=== PATIENT | male | born 1935 | race Native Hawaiian/Other Pacific Islander ===

== ENCOUNTER 2021-03-04 16:54 | Emergency (ER) | payer OTHER ==
[~2021-03-04] VITALS: Ht 182.9 cm; Wt 90.7 kg
[2021-03-04 18:52] VITALS: BP 128/67; TEMP 98
== END 2021-03-04 18:52 | disposition home or self-care (01) ==
LOC: ED 16:54
PROC: 0HQFXZZ Repair Right Hand Skin, External Approach (ICD-10-PCS; principal; 2021-03-04)
PROC: 2W3GX1Z Immobilization of Right Thumb using Splint (ICD-10-PCS; 2021-03-04)
DX: S61.011A Laceration without foreign body of right thumb without damage to nail, initial encounter (principal); W29.8XXA Contact with other powered hand tools and household machinery, initial encounter; Y92.098 Other place in other non-institutional residence as the place of occurrence of the external cause
CPT/HCPCS: 90471; 90715; 99282; 99283; J2001

== ENCOUNTER 2021-03-12 10:31 | Emergency (ER) | payer OTHER ==
[~2021-03-12] VITALS: Ht 182.9 cm; Wt 90.7 kg
[2021-03-12 10:35] VITALS: BP 143/64; TEMP 96.9
== END 2021-03-12 11:08 | disposition home or self-care (01) ==
LOC: ED 10:31
DX: Z51.89 Encounter for other specified aftercare (principal); T81.41XA Infection following a procedure, superficial incisional surgical site, initial encounter; Z79.2 Long term (current) use of antibiotics; Y83.8 Other surgical procedures as the cause of abnormal reaction of the patient, or of later complication, without mention of misadventure at the time of the procedure; Y92.89 Other specified places as the place of occurrence of the external cause
CPT/HCPCS: 99282

== ENCOUNTER 2021-03-15 09:48 | Emergency (ER) | payer OTHER ==
[~2021-03-15] VITALS: Ht 182.9 cm; Wt 90.7 kg
[2021-03-15 10:02] VITALS: BP 189/93; TEMP 97.8
== END 2021-03-15 10:35 | disposition home or self-care (01) ==
LOC: ED 09:48
DX: S61.011D Laceration without foreign body of right thumb without damage to nail, subsequent encounter (principal); Z48.02 Encounter for removal of sutures; J44.9 Chronic obstructive pulmonary disease, unspecified; W29.8XXD Contact with other powered hand tools and household machinery, subsequent encounter
CPT/HCPCS: 99282

== ENCOUNTER 2021-05-25 17:32 | Observation (INO) | payer OTHER ==
[~2021-05-25] VITALS: Ht 180.3 cm; Wt 91.2 kg
[2021-05-25] VITALS (7 sets, daily range): BP systolic 122–165; BP diastolic 57–83; TEMP 98.5
[2021-05-25 18:12] LABS: PLATELET COUNT 206 K/uL (142-355)
[2021-05-25 18:20] LABS: POTASSIUM 4.2 mmol/L (3.6-5.2); SODIUM 137 mmol/L (136-145)
[2021-05-25 18:46] LABS: PARTIAL THROMBOPLASTIN TIME 27.2 SECONDS (24.5-33.6)
[2021-05-26 01:51] VITALS: BP 111/47; TEMP 99; Ht 180.3 cm; Wt 91.2 kg
[2021-05-26 03:17] LABS: PLATELET COUNT 189 K/uL (142-355)
[2021-05-26 03:47] LABS: POTASSIUM 5.1 mmol/L (3.6-5.2)
[2021-05-26 04:00] VITALS: BP 149/78; TEMP 96.2
[2021-05-26 08:00] VITALS: BP 148/61; TEMP 97.5
[2021-05-26 12:00] VITALS: BP 125/52; TEMP 98.1
[2021-05-26 16:00] VITALS: BP 120/58; TEMP 97.8
[2021-05-26] MEDS ORDERED: LOSA50TA PO (16:34)
[2021-05-26] MEDS ORDERED: TRELEGY ELLIPTA1 AER PO (16:36)
[2021-05-26] MEDS ORDERED: ALBUSOL PO (16:44)
[2021-05-26] MEDS ORDERED: METHYLPRED4 M1 PO (16:52)
[2021-05-26] MEDS ORDERED: PRAVACHOL20 MG PO (16:53)
[2021-05-26] MEDS ORDERED: CARV6.25 PO (16:54)
[2021-05-26] MEDS ORDERED: TAMSULOSIN0.4 MG PO (16:55)
[2021-05-26 20:00] VITALS: BP 151/69; TEMP 97.6
[2021-05-27] VITALS: BP 96/47; TEMP 97.6
[2021-05-27 04:00] VITALS: BP 131/51; TEMP 97.8
[2021-05-27 14:42] LABS: PLATELET COUNT 282 K/uL (142-355)
[2021-05-27 14:55] LABS: POTASSIUM 4.1 mmol/L (3.6-5.2)
[2021-05-27 20:00] VITALS: BP 110/68; TEMP 97.6
[2021-05-28 00:07] VITALS: BP 134/67; TEMP 98.4
[2021-05-28 04:00] VITALS: BP 138/67; TEMP 97.7
[2021-05-28 04:57] LABS: PLATELET COUNT 223 K/uL (142-355)
[2021-05-28 05:13] LABS: POTASSIUM 4.2 mmol/L (3.6-5.2)
[2021-05-28 08:00] VITALS: BP 105/60; TEMP 97.8
[2021-05-28 12:00] VITALS: BP 113/59; TEMP 97.9
[2021-05-28] MEDS ORDERED: LEVAQUIN250 MG PO (12:49)
== END 2021-05-28 14:40 | disposition home or self-care (01) ==
LOC: ED 17:36 → MED/SURG 21:18
PROVIDERS: Emergency Medicine Emergency Medical Services; Internal Medicine; ADMIT Internal Medicine Endocrinology, Diabetes & Metabolism; ATTEND Internal Medicine Endocrinology, Diabetes & Metabolism
DX: J96.01 Acute respiratory failure with hypoxia (principal); R41.82 Altered mental status, unspecified; E78.49 Other hyperlipidemia; I25.10 Atherosclerotic heart disease of native coronary artery without angina pectoris; N40.0 Benign prostatic hyperplasia without lower urinary tract symptoms; Z95.0 Presence of cardiac pacemaker; J44.9 Chronic obstructive pulmonary disease, unspecified; I12.9 Hypertensive chronic kidney disease with stage 1 through stage 4 chronic kidney disease, or unspecified chronic kidney disease; N18.30 Chronic kidney disease, stage 3 unspecified; N17.8 Other acute kidney failure
CPT/HCPCS: 36415; 80053; 81000; 82550; 84443; 84484; 85027; 85610; 85730; 87635; 93005; 94664; 94760; 96360; 96374; 99220; 99284; G0378; J2930; U0003

== ENCOUNTER 2022-01-13 11:16 | Emergency (ER) | payer OTHER ==
[~2022-01-13] VITALS: Ht 180.3 cm; Wt 91.2 kg
[~2022-01-13 11:16] MED LIST: ALBUSOL PO; CARV6.25 PO; LEVAQUIN250 MG PO; LOSA50TA PO; METHYLPRED4 M1 PO; PRAVACHOL20 MG PO; TAMSULOSIN0.4 MG PO; TRELEGY ELLIPTA1 AER PO
[2022-01-13 11:22] VITALS: BP 152/72; TEMP 97
[2022-01-13 12:04] LABS: PLATELET COUNT 145 K/uL (142-355)
[2022-01-13 12:35] LABS: POTASSIUM 4.3 mmol/L (3.6-5.2)
== END 2022-01-13 14:28 | disposition home or self-care (01) ==
LOC: ED 11:16
PROVIDERS: Emergency Medicine
DX: S00.12XA Contusion of left eyelid and periocular area, initial encounter (principal); S60.512A Abrasion of left hand, initial encounter; S20.212A Contusion of left front wall of thorax, initial encounter; S13.4XXA Sprain of ligaments of cervical spine, initial encounter; E86.0 Dehydration; R51.9 Headache, unspecified; W17.89XA Other fall from one level to another, initial encounter; Y92.481 Parking lot as the place of occurrence of the external cause
CPT/HCPCS: 80048; 85027; 99283

== ENCOUNTER 2022-11-13 09:58 | Emergency (ER) | payer OTHER ==
[~2022-11-13] VITALS: Ht 177.8 cm; Wt 80.7 kg
[2022-11-13 10:05] VITALS: TEMP 96.9
[2022-11-13 10:29] LABS: PLATELET COUNT 150 K/uL (142-355)
[2022-11-13 10:38] LABS: POTASSIUM 4.6 mmol/L (3.6-5.2)
[2022-11-13 11:58] VITALS: BP 185/90
== END 2022-11-13 11:59 | disposition home or self-care (01) ==
LOC: ED 09:58
PROVIDERS: Internal Medicine
DX: R53.81 Other malaise (principal)
CPT/HCPCS: 36415; 80053; 81002; 84443; 85027; 99283; J2930

== ENCOUNTER 2023-02-07 07:55 | Observation (INO) | payer OTHER ==
[~2023-02-07] VITALS: Ht 180.3 cm; Wt 86.7 kg
[~2023-02-07 07:55] MED LIST changes: -PRAVACHOL20 MG PO; +PRAVASTATIN PO
[2023-02-07 08:00] VITALS: BP 132/79; TEMP 97.9
[2023-02-07 08:18] LABS: PLATELET COUNT 166 K/uL (142-355)
[2023-02-07 08:25] LABS: POTASSIUM 4.2 mmol/L (3.6-5.2)
[2023-02-07 08:30] VITALS: BP 124/62
[2023-02-07 09:00] VITALS: BP 112/65
[2023-02-07 11:42] VITALS: BP 158/77; TEMP 98.2; Ht 180.3 cm; Wt 86.7 kg
[2023-02-07 16:00] VITALS: BP 137/69; TEMP 97.4
[2023-02-07 20:00] VITALS: BP 133/69; TEMP 97.6
[2023-02-08] VITALS (7 sets, daily range): BP systolic 121–154; BP diastolic 56–82; TEMP 97.5–97.9
[2023-02-08 05:49] LABS: PLATELET COUNT 176 K/uL (142-355)
[2023-02-08 06:08] LABS: POTASSIUM 4.4 mmol/L (3.6-5.2)
[2023-02-09 04:00] VITALS: BP 132/60; BP 147/86; TEMP 97.8; TEMP 98
[2023-02-09 08:00] VITALS: BP 162/80; TEMP 97.8
[2023-02-09 11:25] LABS: PLATELET COUNT 193 K/uL (142-355)
== END 2023-02-09 14:00 | disposition home or self-care (01) ==
LOC: ED 07:55 → MED/SURG 08:55
PROVIDERS: Family Medicine; ADMIT Nurse Practitioner Family; ATTEND Internal Medicine
DX: J44.1 Chronic obstructive pulmonary disease with (acute) exacerbation (principal); R06.02 Shortness of breath; Z95.0 Presence of cardiac pacemaker; R09.02 Hypoxemia; R60.0 Localized edema; I25.10 Atherosclerotic heart disease of native coronary artery without angina pectoris; I10 Essential (primary) hypertension; Z79.899 Other long term (current) drug therapy
CPT/HCPCS: 36415; 80053; 83735; 83880; 84484; 85027; 93005; 94664; 94760; 96374; 96375; 99221; 99284; G0378; J0456; J0696; J1940; J2920

== ENCOUNTER 2023-03-09 13:23 | Observation (INO) | payer OTHER ==
[~2023-03-09] VITALS: Ht 180.3 cm; Wt 93.0 kg
[2023-03-09] VITALS (11 sets, daily range): BP systolic 133–203; BP diastolic 74–108; TEMP 98–98.4; Ht 180.3 cm; Wt 93.0 kg
[2023-03-09 13:53] LABS: PLATELET COUNT 181 K/uL (142-355)
[2023-03-09 14:02] LABS: POTASSIUM 4.3 mmol/L (3.6-5.2)
[2023-03-10] VITALS: BP 141/88; TEMP 98.9
[2023-03-10 04:00] VITALS: BP 138/78; TEMP 97.6
[2023-03-10 05:59] LABS: PLATELET COUNT 164 K/uL (142-355)
[2023-03-10 06:10] LABS: POTASSIUM 4.5 mmol/L (3.6-5.2)
[2023-03-10 08:09] VITALS: BP 161/74; TEMP 97.6
[2023-03-10 12:00] VITALS: BP 132/63; TEMP 97.8
[2023-03-10 16:00] VITALS: BP 162/90; TEMP 97.9
[2023-03-10 20:00] VITALS: BP 140/81; TEMP 97.9
[2023-03-11] VITALS: BP 150/76; TEMP 98
[2023-03-11 04:00] VITALS: BP 163/77; TEMP 98
[2023-03-11 05:20] LABS: PLATELET COUNT 166 K/uL (142-355)
[2023-03-11 05:23] LABS: POTASSIUM 4.4 mmol/L (3.6-5.2)
[2023-03-11 07:50] VITALS: BP 179/80; TEMP 98.4
[2023-03-11 11:57] VITALS: BP 160/92; TEMP 97.8
[2023-03-11 16:00] VITALS: BP 156/85; TEMP 97.9
[2023-03-11 20:00] VITALS: BP 161/79; TEMP 97.4
[2023-03-12] VITALS: BP 174/85; TEMP 97.6
[2023-03-12 04:00] VITALS: BP 151/62; TEMP 97.8
[2023-03-12 05:33] LABS: PLATELET COUNT 189 K/uL (142-355)
[2023-03-12 05:39] LABS: POTASSIUM 4.2 mmol/L (3.6-5.2)
[2023-03-12 08:01] VITALS: BP 148/73; TEMP 98
[2023-03-12 12:00] VITALS: BP 169/86; TEMP 97.9
== END 2023-03-12 12:18 | disposition home or self-care (01) ==
LOC: ED 13:23 → EDIP 15:02 → MED/SURG 03-10 10:28
PROVIDERS: Family Medicine; ADMIT Internal Medicine Endocrinology, Diabetes & Metabolism; ATTEND Internal Medicine Endocrinology, Diabetes & Metabolism
DX: J44.1 Chronic obstructive pulmonary disease with (acute) exacerbation (principal); J96.01 Acute respiratory failure with hypoxia; E16.1 Other hypoglycemia; I10 Essential (primary) hypertension; E87.6 Hypokalemia; E78.49 Other hyperlipidemia; N40.0 Benign prostatic hyperplasia without lower urinary tract symptoms; Z87.891 Personal history of nicotine dependence
CPT/HCPCS: 36415; 36600; 80048; 80053; 82805; 82948; 83880; 84484; 85027; 93005; 94664; 96361; 96365; 96366; 96367; 96372; 96374; 96376; 99221; 99284; G0378; J0456; J0696; J1650; J1815; J2060; J2920; J2930

== ENCOUNTER 2023-04-06 16:58 | Emergency (ER) | payer OTHER ==
[~2023-04-06] VITALS: Ht 180.3 cm; Wt 90.7 kg
[2023-04-06 17:39] LABS: PLATELET COUNT 142 K/uL (142-355)
[2023-04-06 21:00] VITALS: BP 131/77; TEMP 97.3
== END 2023-04-06 21:00 | disposition home or self-care (01) ==
LOC: ED 16:58
PROVIDERS: Family Medicine
DX: J44.1 Chronic obstructive pulmonary disease with (acute) exacerbation (principal); R06.00 Dyspnea, unspecified
CPT/HCPCS: 36415; 36600; 80053; 82805; 83880; 84484; 85027; 93005; 94664; 96374; 99284; J2930